=== PATIENT | female | born 1980 | race Hispanic/Latino ===

== ENCOUNTER 2021-12-14 09:53 | Outpatient (CLI) | payer SELFPAY | END 2021-12-14 09:54 | disposition home or self-care (01) | LOC: CSHLAB 09:53 | PROVIDERS: ATTEND Obstetrics & Gynecology | DX: Z01.812 Encounter for preprocedural laboratory examination (principal); Z20.822 Contact with and (suspected) exposure to COVID-19 | CPT/HCPCS: 84703; 85027; 86850; 86900; 86901; U0003; U0005 ==

== ENCOUNTER 2021-12-19 08:41 | Inpatient (IN) | payer OTHER, SELFPAY ==
[2021-12-13 13:29] VITALS: BMI 21.8
[2021-12-14 11:23] LABS: Hemoglobin 13.3 g/dL (12.0-15.5); Mean Corpuscular HGB CONC 33.7 g/dL (32.0-36.0); Mean Corpuscular Hemoglobin 30.4 pg (27.0-33.0); Mean Corpuscular Volume 90.4 fl (81.6-98.3); Mean Platelet Volume 10.1 fl (7.4-10.4); Platelet Count 259 10x3/uL (150-450); RBC Distribution Width 12.9 % (11.5-14.5); Red Blood Cell (RBC) Count 4.37 10x6/uL (3.90-5.03); White Blood Cell (WBC) Count 6.2 10x3/uL (3.5-10.5)
[2021-12-14 11:36] LABS: BHCG - Serum Negative (NEGATIVE); Pregs Control Background? CLEAR/WHITE (CLR/WHITE); Pregs Control Bar Appear? YES (CONTROL BAR)
[2021-12-14 17:37] LABS: SARS-CoV-2 PCR by NAA Not Detected (NotDetected)
[2021-12-19] MEDS ORDERED: Gabapentin 300 MG CAP ONE (08:50)
[2021-12-19] MEDS ORDERED: CeleCOXIB 100 MG CAP ONE (08:50)
[2021-12-19] MEDS ORDERED: Lidocaine 1% MPF 2 ML VIAL ONE (08:51)
[2021-12-19] MEDS ORDERED: Famotidine/PF 20 mg/2ml Vial ONE (08:51)
[2021-12-19] MEDS ORDERED: PROPOFOL 20 ML ONE (09:29)
[2021-12-19] MEDS ORDERED: Lidocaine 1% PF 5 ML VIAL ONE (09:30)
[2021-12-19] MEDS ORDERED: Glycopyrrolate 0.2 MG/ML 5 ML SYRINGE ONE (09:30)
[2021-12-19] MEDS ORDERED: Fentanyl 250 MCG/5 ML VIAL ONE (09:30)
[2021-12-19] MEDS ORDERED: Lidocaine 2% PF 5 ML VIAL ONE (09:30)
[2021-12-19] MEDS ORDERED: Midazolam HCl 2 mg/2 ml Vial ONE (09:30)
[2021-12-19] MEDS ORDERED: Dexamethasone 4 mg/ml Vial ONE (09:30)
[2021-12-19] MEDS ORDERED: Ondansetron PF 4 MG/2 ML Vial ONE (09:30)
[2021-12-19] MEDS ORDERED: Rocuronium Bromide 10 MG/ML (10ML VIAL) ONE (09:30)
[2021-12-19] MEDS ORDERED: Ketorolac Tromethamine 30 MG/ML VIAL ONE (09:30)
[2021-12-19] MEDS ORDERED: ceFAZolin 2 GM/Dextrose 50 ML IVPB ONE (09:57)
[2021-12-19] MEDS ORDERED: Zolpidem Tartrate 5 MG TAB PO PRN ×2 (11:39→12:00)
[2021-12-19] MEDS ORDERED: Ondansetron PF 4 MG/2 ML Vial IVP PRN ×2 (11:39→12:00)
[2021-12-19] MEDS ORDERED: Simethicone Chewable 80 MG TAB PO PRN (11:39)
[2021-12-19] MEDS ORDERED: diphenhydrAMINE 25 MG CAP PO PRN ×2 (11:39→12:00)
[2021-12-19] MEDS ORDERED: Promethazine HCl 25 MG/ML VIAL IM PRN ×2 (11:39→12:00)
[2021-12-19] MEDS ORDERED: fentaNYL Citrate/PF 1,000 MCG, Admixture Fee 1 EACH in Sodium Chloride 0.9% 30 ML IV PRN (12:00)
[2021-12-19] MEDS ORDERED: diphenhydrAMINE 50 MG/ML VIAL IM/IV PRN (12:00)
[2021-12-19] MEDS ORDERED: Naloxone HCl 0.4 mg/ml Vial IV PRN (12:00)
[2021-12-19] MEDS: Ketorolac Tromethamine 30 MG/ML VIAL IVP SCH ×2 (13:10→18:08)
[2021-12-19] MEDS: Sodium Chloride 0.9% 1,000 ML IV SCH ×2 (13:10→21:54)
[2021-12-20] MEDS: Ketorolac Tromethamine 30 MG/ML VIAL IVP SCH ×2 (00:30→06:00)
[2021-12-20 04:38] LABS: Hemoglobin 10.4 g/dL (12.0-15.5); Mean Corpuscular HGB CONC 33.9 g/dL (32.0-36.0); Mean Corpuscular Volume 91.6 fl (81.6-98.3); Mean Platelet Volume 10.5 fl (7.4-10.4); Platelet Count 207 10x3/uL (150-450); RBC Distribution Width 12.9 % (11.5-14.5); Red Blood Cell (RBC) Count 3.35 10x6/uL (3.90-5.03); White Blood Cell (WBC) Count 10.9 10x3/uL (3.5-10.5)
[2021-12-20] MEDS: Sodium Chloride 0.9% 1,000 ML IV SCH ×2 (06:08→11:32)
[2021-12-20] MEDS ORDERED: Sodium Chloride 0.9% 500 ML IVPB SCH (07:30)
[2021-12-20] MEDS ORDERED: HYDROcodone/Acetaminophen 5/325 mg Tablet PO PRN (10:12)
[2021-12-20] MEDS ORDERED: Ibuprofen 400 MG TAB PO PRN (10:26)
[2021-12-20] MEDS: HYDROcodone/Acetaminophen 5/325 mg Tablet PO PRN ×2 (10:42→16:27)
[2021-12-21] MEDS: HYDROcodone/Acetaminophen 5/325 mg Tablet PO PRN ×2 (05:30→12:16)
[2021-12-21] MEDS: Sodium Chloride 0.9% 1,000 ML IV SCH ×2 (07:42)
[2021-12-21 07:59] VITALS: BP 110/63; TEMP 98.4
== END 2021-12-21 12:39 | disposition home or self-care (01) | DRG 743 ==
LOC: CSHSDC 08:41 → CSHPED 13:42
PROVIDERS: ADMIT Obstetrics & Gynecology; ATTEND Obstetrics & Gynecology
PROC: 0UT90ZZ Resection of Uterus, Open Approach (ICD-10-PCS; principal; 2021-12-19)
PROC: 0UT70ZZ Resection of Bilateral Fallopian Tubes, Open Approach (ICD-10-PCS; 2021-12-19)
PROC: 0JN80ZZ Release Abdomen Subcutaneous Tissue and Fascia, Open Approach (ICD-10-PCS; 2021-12-19)
DX: D25.9 Leiomyoma of uterus, unspecified (principal); Z20.822 Contact with and (suspected) exposure to COVID-19; N92.0 Excessive and frequent menstruation with regular cycle; N94.6 Dysmenorrhea, unspecified; D64.9 Anemia, unspecified; E86.0 Dehydration; K66.0 Peritoneal adhesions (postprocedural) (postinfection)
CPT/HCPCS: 36415; 84703; 85027; 86850; 86900; 86901; 88307; J0690; J1100; J1885; J2001; J2250; J2405; J2704; J3010; J3490; J7050; S0028; U0003; U0005